=== PATIENT | female | born 1975 | race Caucasian/White ===

== ENCOUNTER 2016-08-20 15:46 | Emergency (ER) | payer OTHER ==
[~2016-08-20] VITALS: Wt 72.5 kg
[2016-08-20] MEDS ORDERED: DIAZEPAM 5 MG TAB PO ONE (18:30)
[2016-08-20] MEDS ORDERED: IBUPROFEN 600 MG TAB PO ONE (18:30)
[2016-08-20 18:33] LABS: URINE BLOOD (Dip) POC Negative (NEGATIVE)
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
[2016-08-20] MEDS ORDERED: DIAZ-90 PO (20:24)
[2016-08-20] MEDS ORDERED: IBUP-1542 PO (20:24)
[2016-08-20 20:43] VITALS: BP 110/72; PULSE 77; RESP 18; TEMP 98.5
== END 2016-08-20 20:44 | disposition home or self-care (01) ==
LOC: FTE 15:46
DX: S09.90XA Unspecified injury of head, initial encounter (principal); R51 Headache; J45.909 Unspecified asthma, uncomplicated; Y08.89XA Assault by other specified means, initial encounter
CPT/HCPCS: 70450; 72125; 81003; Z7502; Z7610